=== PATIENT | male | born 2000 ===

== ENCOUNTER 2018-01-17 21:30 | Emergency (ER) | payer OTHER, SELFPAY ==
[2018-01-17] MEDS ORDERED: Bacitracin Zinc 1 Packet ONE (21:42)
[2018-01-17] MEDS ORDERED: Adacel (T-DAP) 0.5 ML VIAL ONE (22:28)
== END 2018-01-17 23:08 | disposition home or self-care (01) ==
LOC: ERS 21:30
DX: S71.152A Open bite, left thigh, initial encounter (principal); S31.551A Open bite of unspecified external genital organs, male, initial encounter; S51.852A Open bite of left forearm, initial encounter; S51.812A Laceration without foreign body of left forearm, initial encounter; S31.5 Open wound of unspecified external genital organs; S70.12XA Contusion of left thigh, initial encounter; W54.0XXA Bitten by dog, initial encounter
CPT/HCPCS: 90471; 90715